=== PATIENT | female | born 1985 | race African-American/Black ===

== ENCOUNTER 2017-02-23 23:43 | Emergency (ER) | payer SELFPAY ==
[~2017-02-23] VITALS: Ht 170.2 cm; Wt 95.3 kg
[2017-02-24 00:49] LABS: APPEARANCE,URINE CLEAR; BILIRUBIN, URINE NEGATIVE (NEGATIVE); GLUCOSE, URINE (UA) NEGATIVE (NEGATIVE); KETONES,URINE 1+ (NEGATIVE); LEUKOCYTE ESTERASE ,URINE 1+ (NEGATIVE); NITRITE,URINE NEGATIVE (NEGATIVE); PH,URINE 6 (4.5-8.0); PROTEIN,URINE NEGATIVE (NEGATIVE); UROBILINOGEN,URINE 1 MG/DL (0.0-1.0)
[2017-02-24 00:52] LABS: COLOR,URINE YELLOW
[2017-02-24] MEDS ORDERED: LIDOCAINE VISC100 ML TOPIC (02:06)
--- NOTE | 2017-02-24 02:21 | Emergency Room Report ---
History of Present Illness General Chief Complaint: Vaginal Source: Patient Present Illness HPI 31YOF c/o painful area to left lower labia Also c/o white discharge, intermittent, looks like cottage cheese, for last week 1 sexual partner - no barrier protection used Denies dysuria, polyuria, fever/chills, flank pain Denies recent Abx use Denies frequent fungal infections Allergies: Coded Allergies: No Known Allergies (Unverified , 02/24/17) Patient History Past Medical History: none Past Surgical History: none Pertinent Family History: none Social History: Denies: smoking, alcohol use, drug use Last Menstrual Period: feb 12 Now: No : 0 Immunizations: UTD Reviewed Nursing Documentation: PMH: Agreed, PSxH: Agreed Nursing Documentation-PMH Past Medical History: No Stated History Review of Systems All Other Systems: negative except mentioned in HPI Physical Exam Vital Signs Date Time Temp Pulse Resp B/P (MAP) Pulse Ox O2 Delivery O2 Flow Rate FiO2 02/23/17 23:56 97.9 61 18 126/87 98 Room Air Sp02 EP Interpretation: reviewed, normal General Appearance: normal inspection, well appearing, no apparent distress, alert Head: atraumatic ENT: normal ENT inspection, hearing grossly normal, normal voice Neck: normal inspection, full range of motion, supple, no bony tend Respiratory: normal inspection, lungs clear, normal breath sounds, no respiratory distress, no retraction, no wheezing Cardiovascular #1: regular rate, rhythm, no edema Gastrointestinal: normal inspection, normal bowel sounds, non tender, soft, no guarding, no hernia Genitourinary: no CVA tenderness, other - Done with ROMERO Cole present. 1/2cm area of abrasion to left lower labia. No vesicles. No discharge seen from vagina. Musculoskeletal: normal inspection, back normal, normal range of motion, Chun' s Sign negative Neurologic: normal inspection, alert, oriented x3, responsive, software asset management analyst III-XII nml as tested, speech normal Psychiatric: normal inspection, judgement/insight normal, mood/affect normal Skin: normal inspection, normal color, no rash Medical Decision Making Diagnostic Impression: Primary Impression: Vaginal ulcer ER Course Some vaginal abrasion VSS. Afebrile Low suspicion for herpes No bartholin abscess/cyst No rikki discharge seen UA negative for UTI Advised topical lidocaine as needed for pain DC home Last Vital Signs Date Time Temp Pulse Resp B/P (MAP) Pulse Ox O2 Delivery O2 Flow Rate FiO2 02/23/17 23:56 97.9 61 18 126/87 98 Room Air Status: improved Disposition: HOME, SELF-CARE Condition: Improved Scripts Lidocaine HCl 2% Viscous (Lidocaine HCl 2% Viscous) 100 Ml Solution 15 ML TOPIC QID for 7 Days, #1 UNIT Prov: GIOVANY HERNANDEZ M.D. 02/24/17 Patient Instructions: Abrasion, [id number] Additional Instructions: - Apply topical viscous lidocaine up to 2x a day for pain relief - Follow up with primary care doctor for STD testing GIOVANY HERNANDEZ M.D. Feb 24, 2017 02:21
[2017-02-24 02:33] VITALS: BP 130/91
== END 2017-02-24 02:33 | disposition home or self-care (01) ==
LOC: EMR 02-24 00:30
DX: N76.5 Ulceration of vagina (principal); S30.814A Abrasion of vagina and vulva, initial encounter; X58.XXXA Exposure to other specified factors, initial encounter; Y93.9 Activity, unspecified; Y99.9 Unspecified external cause status; N89.8 Other specified noninflammatory disorders of vagina; R10.2 Pelvic and perineal pain
CPT/HCPCS: 81003; 81025; 99283

== ENCOUNTER 2019-03-10 17:30 | Emergency (ER) | payer OTHER ==
[~2019-03-10] VITALS: Ht 172.7 cm; Wt 72.6 kg
[~2019-03-10 17:30] MED LIST: LIDOCAINE VISC100 ML TOPIC
[2019-03-10 17:41] VITALS: BP 131/79
--- NOTE | 2019-03-10 17:41 | NUR ---
ED Nurse Note: A/OX4. REPORTS OF HAVING NECK PAIN 8/10 S/P THERAPY ACCIDENT 3DAYS AGO. PT REPORTS THAT HER NECK GOT STUCK IN MESSAGE MACHINE. NO TRAUMA NOTED. PAIN WITH MOVEMENT.
[2019-03-10] MEDS ORDERED: Ketorolac 30mg Inj IM ONE (18:00)
[2019-03-10] MEDS ORDERED: Methocarbamol 750mg tab ORAL ONE (18:00)
--- NOTE | 2019-03-10 18:24 | Diagnostic Imaging Report ---
EXAM: CT Neck Without Intravenous Contrast CLINICAL HISTORY: TRAUMA TECHNIQUE: Axial computed tomography images of the neck without intravenous contrast. CTDI is 49 mGy and DLP is 1112 mGy-cm. One or more of the following dose reduction techniques were used: automated exposure control, adjustment of the mA and/or kV according to patient size, use of iterative reconstruction technique. COMPARISON: No relevant prior studies available. FINDINGS: Oropharynx: Unremarkable. No significant tonsillar enlargement. Hypopharynx: Unremarkable. Larynx: Unremarkable. Normal epiglottis. Trachea: Unremarkable. Retropharyngeal space: Unremarkable. Submandibular/parotid glands: Unremarkable. Glands are normal in size. Thyroid: Unremarkable. No enlarged or calcified nodules. Bones/joints: Cervical spine straightening, which could represent patient positioning or muscle spasm. No acute fracture. Soft tissues: Unremarkable. Vasculature: No acute findings. Lymph nodes: Unremarkable. No lymphadenopathy. Lung apices: Unremarkable as visualized. IMPRESSION: 1. No traumatic injury. 2. Cervical spine straightening, which could represent patient positioning or muscle spasm. 3. Otherwise unremarkable study.
--- NOTE | 2019-03-10 18:40 | Emergency Room Report ---
History of Present Illness General Chief Complaint: Neck Pain Source: Patient Present Illness HPI 33-year-old female with no symptom past medical history here complaining of 10 out of 10 pain that started yesterday after rotational movements post accident. Patient was laying down in a massage table as her hair got caught and then machine that was giving neck massage pulled her neck back and forth several times. Patient rating pain 10 out of 10 with radiation to both shoulders denying any tingling and numbness at this time. No signs of trauma noted. Has taken [id number] ibuprofen with minimal relief of pain. No carotid bruits are noted. No bony tenderness noted. Denies all other injuries, has limited range of motion when turning to right or left. Has not taken any other medication for symptom relief. Patient is alert and awake Allergies: Coded Allergies: No Known Allergies (Unverified , 03/10/19) Patient History Past Medical History: see triage record Past Surgical History: unable to obtain Pertinent Family History: none Last Menstrual Period: FEB 2019 Now: No Immunizations: UTD Reviewed Nursing Documentation: PMH: Agreed; PSxH: Agreed Nursing Documentation-PMH Past Medical History: No Stated History Review of Systems All Other Systems: negative except mentioned in HPI Physical Exam Vital Signs Date Time Temp Pulse Resp B/P (MAP) Pulse Ox O2 Delivery O2 Flow Rate FiO2 03/10/19 17:37 98.4 67 18 131/79 (96) 96 Room Air Sp02 EP Interpretation: reviewed, normal General Appearance: no apparent distress, alert, GCS 15, non-toxic Head: normocephalic, atraumatic Eyes: bilateral eye normal inspection, bilateral eye PERRL ENT: hearing grossly normal, normal pharynx, no angioedema, normal voice Neck: supple, no meningismus, no bony tend, no carotid bruits, supple/symm/no masses, limited range of motion Respiratory: chest non-tender, lungs clear, normal breath sounds, no rhonchi, no respiratory distress, no retraction, no wheezing, speaking full sentences Cardiovascular #1: regular rate, rhythm, no edema, no murmur Cardiovascular #2: 2+ carotid (R), 2+ carotid (L) Gastrointestinal: non tender, soft Rectal: deferred Genitourinary: no CVA tenderness Musculoskeletal: back normal, normal range of motion, gait/station normal, non- tender Neurologic: alert, motor strength/tone normal, oriented x3, sensory intact, responsive, speech normal Psychiatric: judgement/insight normal, memory normal, mood/affect normal, no suicidal/homicidal ideation Skin: no rash Lymphatic: no adenopathy Medical Decision Making PA Attestation All my diagnosis and treatment plans were reviewed ad discussed with my supervising physician Dr. Cuba Diagnostic Impression: Primary Impression: Cervical strain ER Course 33-year-old female with no symptom past medical history here complaining of 10 out of 10 pain that started yesterday after rotational movements post accident. Patient was laying down in a massage table as her hair got caught and then machine that was giving neck massage pulled her neck back and forth several times. Patient rating pain 10 out of 10 with radiation to both shoulders denying any tingling and numbness at this time. No signs of trauma noted. Has taken [id number]-hyt-bubdena ibuprofen with minimal relief of pain. No carotid bruits are noted. No bony tenderness noted. Denies all other injuries, has limited range of motion when turning to right or left. Has not taken any other medication for symptom relief. Patient is alert and awake Ddx considered but are not limited to: cervical spine fracture, cervical spine strain, cervical spine sprain, carotid artery disease Vital signs: are WNL, pt. is afebrile H&PE are most consistent with: Cervical strain ORDERS: Soft tissue CT neck, ibuprofen, Robaxin, lidocaine patch ED INTERVENTIONS: toradol, robaxin, lidocaine patch DISCHARGE: At this time pt. is stable for d/c to home. Will provide printed patient care instructions, and any necessary prescriptions. Care plan and follow up instructions have been discussed with the patient prior to discharge. Take medication as directed, follow-up with your primary care provider for further imaging and physical therapy. If worsening symptoms return to the emergency room CT/MRI/US Diagnostic Results CT/MRI/US Diagnostic Results : Imaging Test Ordered: CT scan neck soft tissue Impression IMPRESSION: 1. No traumatic injury. 2. Cervical spine straightening, which could represent patient positioning or muscle spasm. 3. Otherwise unremarkable study. Last Vital Signs Date Time Temp Pulse Resp B/P (MAP) Pulse Ox O2 Delivery O2 Flow Rate FiO2 03/10/19 18:24 98.4 03/10/19 17:41 68 18 131/79 96 Room Air Disposition: HOME, SELF-CARE Condition: Stable Scripts Lidocaine Patch* (Lidoderm Patch*) 1 Each Adh..patch 1 PATCH TOPIC DAILY, #7 PATCH 0 Refills Patch(es) may remain in place for up to 12 hours in any 24-hour period. Prov: Raúl Juarez 03/10/19 Ibuprofen (Ibu) 800 Mg Tablet 800 MG PO TID, #30 TAB Prov: Raúl Juarez 03/10/19 Methocarbamol* (ROBAXIN-500*) 500 Mg Tablet 500 MG ORAL TID PRN for For Pain, #15 TAB 0 Refills Prov: Raúl Juarez 03/10/19 Patient Instructions: Cervical Strain and Sprain With Rehab-SportsMed Additional Instructions: Take medication as directed, follow-up with your primary care physician, if worsening symptoms return to the emergency room. Further imaging may be needed to be requested by your primary care physician. Avoid strenuous physical activity Raúl Juarez Mar 10, 2019 18:40
[2019-03-10] MEDS ORDERED: LIDODERM700 M1 TOPIC (18:41)
[2019-03-10] MEDS ORDERED: ROBAXIN-500MG ORAL (18:41)
[2019-03-10] MEDS ORDERED: IBU800 MG PO (18:41)
[2019-03-10 18:47] VITALS: BP 131/79
--- NOTE | 2019-03-10 18:47 | NUR ---
ED Nurse Note: Pt cleared by health care Provider for discharge. DC instructions/prescription was given and explained to pt and verbalized understanding of teachings. All medical deviecs such as ID band removed. Pt is AAO x4, ambulatory and left with all personal belongings.
== END 2019-03-10 18:47 | disposition home or self-care (01) ==
LOC: EMR 18:00
DX: S16.1XXA Strain of muscle, fascia and tendon at neck level, initial encounter (principal); X50.1XXA Overexertion from prolonged static or awkward postures, initial encounter; Y93.89 Activity, other specified; Y92.9 Unspecified place or not applicable
CPT/HCPCS: 70490; 96372; J1885; Z7502; 99284

== ENCOUNTER 2020-06-07 17:46 | Emergency (ER) | payer OTHER ==
[~2020-06-07] VITALS: Ht 172.7 cm; Wt 90.7 kg
[~2020-06-07 17:46] MED LIST changes: +IBU800 MG PO; +LIDODERM700 M1 TOPIC; +ROBAXIN-500MG ORAL
[2020-06-07] MEDS ORDERED: Tetracaine 0.5% Opth 4ml Soln LEFT EYE ONE (18:00)
[2020-06-07] MEDS ORDERED: Fluorescein Strips LEFT EYE ONE (18:00)
--- NOTE | 2020-06-07 18:06 | NUR ---
ED Nurse Note: pt states it feels like something is in her eye, she thinks her cornea is scratched
[2020-06-07 18:10] VITALS: BP 120/80
[2020-06-07] MEDS ORDERED: PATADAY2.5 ML OP (18:14)
--- NOTE | 2020-06-07 18:22 | NUR ---
ER DISCHARGE NOTE: Patient is cleared to be discharged per ERMD, pt is aox4, on room air, with stable vital signs. pt was given dc and prescription instructions, pt was able to verbalize understanding. pt is able to ambulate with steady gait. pt took all belongings.
--- NOTE | 2020-06-07 18:55 | Emergency Room Report ---
History of Present Illness General Chief Complaint: Eye Problems Source: Patient Present Illness HPI Patient is a 34-year-old female presents for left eye irritation. Onset of symptoms approximately 2 hours prior to arrival. Had left-sided eyelashes placed 3 days ago. Denies any visual changes. Has been having increased foreign body sensation. Denies any fever. No eye discharge. Sudden onset of symptoms felt like something had entered her eye. Denies any vaginal discharge or difficulty with urination. Prior history of glaucoma with right eye low vision. States she uses 3 different types of eyedrops in the side. Denies any flashing lights or floaters. Denies any recent trauma. Does not wear contact lenses. Allergies: Coded Allergies: No Known Allergies (Unverified , 03/10/19) COVID-19 Screening Contact w/high risk pt: No Experienced COVID-19 symptoms?: No COVID-19 Testing performed SALES PROMOTION REPRESENTATIVE: No Patient History Past Medical History: see triage record Last Menstrual Period: 05/27 Now: No Reviewed Nursing Documentation: PMH: Agreed; PSxH: Agreed Nursing Documentation-PMH Past Medical History: No Stated History Review of Systems All Other Systems: negative except mentioned in HPI Physical Exam Vital Signs Date Time Temp Pulse Resp B/P (MAP) Pulse Ox O2 Delivery O2 Flow Rate FiO2 06/07/20 17:51 98.1 69 18 120/80 (93) 98 Room Air General Appearance: well appearing, no apparent distress, alert, GCS 15 Head: normocephalic, atraumatic Eyes: left eye EOMI, left eye anticteric; bilateral eye PERRL ENT: hearing grossly normal, normal voice Neck: full range of motion, supple Respiratory: no respiratory distress, speaking full sentences Cardiovascular #1: normal inspection, regular rate, rhythm Gastrointestinal: normal inspection, soft Musculoskeletal: normal inspection, no calf tenderness Neurologic: alert, motor strength/tone normal, core blower III-XII nml as tested, oriented x3, normal gait Psychiatric: mood/affect normal Skin: no rash Medical Decision Making Diagnostic Impression: Primary Impression: Conjunctivitis ER Course Presented for increased left-sided eye irritation. Differential diagnosis include was not limited to foreign body, irritant conjunctivitis, allergic reaction among others. Fluorescein dye exam showed no evidence of dye uptake. Patient does not appear to have any evidence of significant infection at this time. She appears stable for discharge. She was advised to follow-up with her direct care professional. Advised return if worse. This medical record is generated with [employer] stripper printed circuit boards software. There may be some stripper printed circuit boards discrepancies related to use of this software Last Vital Signs Date Time Temp Pulse Resp B/P (MAP) Pulse Ox O2 Delivery O2 Flow Rate FiO2 06/07/20 18:10 98.1 18 120/80 98 Room Air 06/07/20 17:51 69 Status: improved Disposition: HOME, SELF-CARE Condition: Stable Scripts Olopatadine Hcl (PATADAY) 2.5 Ml Drops 2.5 ML OP TWICE A DAY for pain, #2.5 ML Prov: Ted Carr MD 06/07/20 Patient Instructions: Allergic Conjunctivitis, [id number] Ted Carr MD Jun 07, 2020 18:55
== END 2020-06-07 18:20 | disposition home or self-care (01) ==
LOC: EMR 18:09
DX: H10.9 Unspecified conjunctivitis (principal); Z86.69 Personal history of other diseases of the nervous system and sense organs
CPT/HCPCS: 99282

== ENCOUNTER 2020-06-22 18:12 | Emergency (ER) | payer OTHER ==
[~2020-06-22] VITALS: Ht 172.7 cm; Wt 113.4 kg
[~2020-06-22 18:12] MED LIST changes: +PATADAY2.5 ML OP
[2020-06-22] MEDS ORDERED: AUGMENTIN 875-1 EAC1 ORAL ×3 (19:11→19:31)
[2020-06-22 19:29] VITALS: BP 127/76
--- NOTE | 2020-06-25 07:22 | Emergency Room Report ---
History of Present Illness General Chief Complaint: Animal Bite Source: Patient Present Illness HPI 34-year-old female presents for evaluation. States she was bitten by her cat 1 week ago on the left hand. Did not seek medical attention at the time but is having throbbing pain to the hand. 7 out of 10, nonradiating. States her tetanus is up-to-date. Denies any other injuries. States the cat has been vac cinated. No other aggravating relieving factors. Denies any other associated symptoms Allergies: Coded Allergies: No Known Allergies (Unverified , 03/10/19) COVID-19 Screening Contact w/high risk pt: No Experienced COVID-19 symptoms?: No COVID-19 Testing performed OFFICE SERVICES ASSOCIATE: No Patient History Past Medical History: none Past Surgical History: none Pertinent Family History: none Social History: Denies: smoking, alcohol use, drug use Now: No Immunizations: UTD Reviewed Nursing Documentation: PMH: Agreed; PSxH: Agreed Nursing Documentation-PMH Past Medical History: No Stated History Review of Systems All Other Systems: negative except mentioned in HPI Physical Exam Vital Signs Date Time Temp Pulse Resp B/P (MAP) Pulse Ox O2 Delivery O2 Flow Rate FiO2 06/22/20 18:41 98.1 69 18 127/76 (93) 100 Room Air Sp02 EP Interpretation: reviewed, normal General Appearance: no apparent distress, alert, GCS 15, non-toxic Head: normocephalic, atraumatic Eyes: bilateral eye normal inspection, bilateral eye PERRL ENT: hearing grossly normal, normal pharynx, no angioedema, normal voice Neck: full range of motion, supple/symm/no masses Respiratory: chest non-tender, lungs clear, normal breath sounds, speaking full sentences Cardiovascular #1: regular rate, rhythm, no edema Cardiovascular #2: 2+ carotid (R), 2+ carotid (L), 2+ radial (R), 2+ radial (L), 2+ dorsalis pedis (R), 2+ dorsalis pedis (L) Gastrointestinal: normal bowel sounds, non tender, soft, non-distended, no guarding, no rebound Rectal: deferred Genitourinary: normal inspection, no CVA tenderness Musculoskeletal: back normal, normal range of motion, gait/station normal, tender - Healing puncture wound to palmar aspect of left hand. No fluctuance or discharge Neurologic: alert, motor strength/tone normal, oriented x3, sensory intact, responsive, speech normal Psychiatric: judgement/insight normal, memory normal, mood/affect normal, no suicidal/homicidal ideation Reflexes: 3+ bicep (R), 3+ bicep (L), 3+ tricep (R), 3+ tricep (L), 3+ knee (R), 3+ knee (L) Skin: no rash Lymphatic: no adenopathy Medical Decision Making Diagnostic Impression: Primary Impression: Cat bite Qualified Codes: W55.01XA - Bitten by cat, initial encounter ER Course Hospital Course 34-year-old female presents with cat bite to left hand x1 week Differential diagnoses include: abscess, cellulitis, ankle fracture, dislocation Clinical course Patient placed on stretcher. After initial history physical exam reveals female no acute distress. There appears to be a healing puncture wound to the left hand. There is some mild erythema surrounding. No fluctuance or discharge. No appreciable swelling. Full range of motion. Will discharge with antibiotics. States she has a PMD Diagnosis -cat bite Stable and discharged to home with prescription Rx augmentin. Followup with PMD. Return to ED if symptoms recur or worsen Last Vital Signs Date Time Temp Pulse Resp B/P (MAP) Pulse Ox O2 Delivery O2 Flow Rate FiO2 06/22/20 19:29 98.1 18 127/76 100 Room Air 06/22/20 18:41 69 Status: improved Disposition: HOME, SELF-CARE Condition: Stable Scripts Amoxicillin/Potassium Clav 875-125* (AUGMENTIN 875-125 TABLET*) 1 Each Tablet 1 TAB ORAL TWICE A DAY, #14 TAB Prov: Jermain Cuba MD 06/22/20 Patient Instructions: Animal Bite, [id number] Jermain Cuba MD Jun 25, 2020 07:22
== END 2020-06-22 19:35 | disposition home or self-care (01) ==
LOC: EMR 19:05
DX: S61.452A Open bite of left hand, initial encounter (principal); W55.01XA Bitten by cat, initial encounter; Y92.9 Unspecified place or not applicable
CPT/HCPCS: 99282